=== PATIENT | male | born 1955 | race Two or more races ===

== ENCOUNTER 2016-09-18 20:07 | Emergency (ER) | payer MEDICAID, OTHER ==
[2016-09-18 20:26] VITALS: BP 111/72; PULSE 86; RESP 16; TEMP 98.2; O2SAT 94
--- NOTE | 2016-09-18 20:36 | EDPHY ---
H & P Time Seen by Provider: 09/18/16 20:35 HPI/ROS: Chief complaint. Back pain HPI. 61-year-old male with history of chronic low back pain was trying to get his CAT out from under the bed. The CT has been sick and the patient was afraid that the CT was not doing well. The patient tried to lift the bed and sustained low back pain to both sides of his low back. No leg weakness or radiation of pain to his leg. No bowel or bladder symptoms. Injury occurred 3- 4 hours ago. Pain is in the usual part of his low back. ROS Constitutional. no fever/chills, no weakness Eyes. no problems with vision ENT. no sore throat, no nasal drainage Cardiovascular. no chest pain Respiratory. no shortness of breath, no cough Abdominal. no abdominal pain, no nausea/vomiting, no diarrhea . no problems urinating MS. Low back pain Skin. no rash Lymph. no swollen glands Neuro. no headache, no dizziness, no difficulty walking or with speech Past Medical/Surgical History: Chronic back pain, depression, anxiety Social History: Single, daily smoker, no alcohol Smoking Status: Heavy smoker Physical Exam: General Appearance: Alert well-developed male mild distress vital signs stable Eyes: Pupils equal and round no pallor or injection. ENT, Mouth: Mucous membranes are moist. Respiratory: There are no retractions, lungs are clear to auscultation. Cardiovascular: Regular rate and rhythm. Gastrointestinal: Abdomen is soft and nontender, no masses, bowel sounds normal. Neurological: Awake and alert, sensory and motor exams grossly normal. Straight leg raising negative at 30 degrees bilaterally. Deep tendon reflexes are symmetrical. Great toe strength is normal and symmetrical. Sensations normal Skin: Warm and dry, no rashes. Musculoskeletal: Neck is supple nontender. Tender across the lumbar area. Not particularly tender over the lumbar spine. Extremities symmetrical, full range of motion. Psychiatric: Patient is oriented X 3, there is no agitation. Constitutional: Initial Vital Signs Temperature (C) 36.8 C 09/18/16 20:22 Heart Rate 86 09/18/16 20:22 Respiratory Rate 16 09/18/16 20:22 Blood Pressure 111/72 09/18/16 20:22 O2 Sat (%) 94 09/18/16 20:22 O2 Delivery Mode Room Air Allergies/Adverse Reactions: No Known Allergies Allergy (Unverified 01/17/14 18:21) Home Medications: Medication Instructions Recorded Cyclobenzaprine [Flexeril 10 MG 10 mg PO TID PRN #15 tab 04/03/14 (*)] Hydrocodone/Acetaminophen [[place] 1 - 2 tab PO Q4H PRN #12 tab 04/03/14 5/325 (*)] CYCLOBENZAPRINE HCL [Flexeril] 5 mg PO TIDPRN PRN #10 tab 09/18/16 Hydrocodone/APAP 5/325 [[place] 1 each PO Q4-6PRN PRN #10 tab 09/18/16 5/325 (*)] Medical Decision Making ED Course/Re-evaluation: Patient remained stable on re-evaluation. The patient and I discussed treatment plan including criteria for return importance of follow-up and further evaluation. He expresses understanding and agreement Differential Diagnosis: I think this is muscular low back pain. I considered cauda equina syndrome and herniated disc as well Departure - Departure Disposition: Home, Routine, Self-Care Clinical Impression: Low back pain Qualifiers: Chronicity: acute Back pain laterality: bilateral Sciatica presence: without sciatica Qualified Code(s): M54.5 - Low back pain Condition: Good Instructions: Low Back Strain (ED) Additional Instructions: Continue Naprosyn as prescribed. Flexeril as muscle relaxer. Hydrocodone for pain. Activity as tolerated. Return for leg weakness, bowel or bladder symptoms. Recheck by regular physician in [place] in 2-3 days if not improved Referrals: NONE *PRIMARY CARE P,. [Primary Care Provider] - As per Instructions Prescriptions: CYCLOBENZAPRINE HCL [Flexeril] 5 mg PO TIDPRN PRN #10 tab PRN Reason: Spasms Hydrocodone/APAP 5/325 [[place] 5/325 (*)] 1 each PO Q4-6PRN PRN #10 tab PRN Reason: Pain, Moderate
[2016-09-18] MEDS ORDERED: CYCLOBENZAPRINE 10MG PREPACK#3 BTL TAKEHOME ONE (20:45)
[2016-09-18] MEDS ORDERED: HYDROCOD/APAP 5/325 PREPACK#6 BTL TAKEHOME ONE (20:45)
== END 2016-09-18 20:48 | disposition home or self-care (01) ==
LOC: CED 20:07
DX: M54.5 Low back pain (principal); F17.200 Nicotine dependence, unspecified, uncomplicated

== ENCOUNTER 2016-11-03 19:57 | Emergency (ER) | payer MEDICAID ==
[2016-11-03 20:06] VITALS: BP 133/80; PULSE 70; RESP 18; TEMP 97.5; O2SAT 96
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
== END 2016-11-03 20:20 | disposition home or self-care (01) ==
LOC: CED 19:57
DX: M54.5 Low back pain (principal); G89.29 Other chronic pain; F17.200 Nicotine dependence, unspecified, uncomplicated